=== PATIENT | female | born 1950 | race Caucasian/White ===

== ENCOUNTER 2017-01-07 21:38 | Emergency (ER) | payer MEDICARE, BC ==
[2017-01-07] MEDS ORDERED: HYDROcodone/APAP PREPAC 5/325 1 TAB TABLET PO ONE (22:43)
[2017-01-07] MEDS ORDERED: HYDROcodone/APAP 5/325 MG 1 TAB TABLET PO ONE (22:43)
--- NOTE | 2017-01-07 23:02 | ER NURSING DOCUMENTATION ---
Nurse's Notes [facility] Name:Merline Vogt Age:66 yrs Sex:Female :1950 Arrival Date:01/07/2017 Time:21:38 Bed2 Private MD: Diagnosis:Perforated Tympanic Membrane, Unspecified Ear;Barotrauma of Ear Presentation: 01/07 21:47 Presenting complaint: Patient states: Bilateral ear pain. Right ear with bright red mk4 bloody drainage. Transition of care: Home. 21:47 Method Of Arrival: Walk In [facility] 21:47 Acuity: JUSTUS 3 4 Triage Assessment: 21:50 General: Appears distressed, Behavior is cooperative. Pain: Complains of pain in right mk4 ear and left ear. EENT: Ear canal w/ bleeding noted from right ear. Neuro: No deficits noted. Cardiovascular: Chest pain is denied. Respiratory: No deficits noted. GI: No deficits noted. : No deficits noted. Derm: No deficits noted. Musculoskeletal: No deficits noted. Historical: - Allergies: SULFA (SULFONAMIDES); Peanuts; SULFA (SULFONAMIDES); Peanuts; - Home Meds: 1. Synthroid 25 mcg oral tab 1 tab once daily 2. omeprazole 40 mg oral cpDR 1 cap once daily 3. Coumadin 4 mg oral tab 1 tab once daily 4. Coumadin 2 mg oral tab 1 tab once daily 5. Toprol XL 100 mg oral Tb24 1 tab once daily 6. simvastatin 10 mg oral tab 1 tab once daily in the evening 7. Calcarb 600 With Vitamin D 600 mg(1,500mg) -400 unit oral tab twice a day 8. multivitamin oral tab daily 9. Synthroid 25 mcg oral tab 1 tab once daily 10. omeprazole 40 mg oral cpDR 1 cap once daily 11. Coumadin 4 mg oral tab 1 tab once daily 12. Coumadin 2 mg oral tab 1 tab once daily 13. Toprol XL 100 mg oral Tb24 1 tab once daily 14. simvastatin 10 mg oral tab 1 tab once daily in the evening 15. Calcarb 600 With Vitamin D 600 mg(1,500mg) -400 unit oral tab twice a day 16. multivitamin oral tab daily - PMHx: Pulmonary Embolism x 2; HYPERTENSION; HYPOTHYROIDISM; hypercholesteremia; - PSHx: LUMPECTOMY; L wrist surgical repair (October 2014); - Tetanus: < 10 years. - Ebola Screening: : No symptoms or risks identified at this time. . - Social history: Smoking status: Patient states was never smoker of tobacco. - Immunization history: Flu Vaccine < 1 year. Screenin:50 Infectious Disease Risk None. Abuse screen: Unable to Obtain. Nutritional screening: No mk4 deficits noted. Assessment: 21:50 See Triage Assessment done by same RN. mk4 Vital Signs: 21:46 BP 198 / 104 LA Sitting (auto/reg); Pulse 83 LA; Resp 20 S; Temp 98.0(O); Pulse Ox 94% em3 on R/A; Weight 75.75 kg (R); Height 5 ft. 2 in. (157.48 cm) (R); Pain 9/10; 21:46 Body Mass Index 30.54 (75.75 kg, 157.48 cm) em3 ED Course: 21:39 Patient arrived in ED. em3 21:41 Cale Espinal MD is Attending Physician. shannan 21:47 Irlanda Donaldson is Primary Nurse. mk4 21:47 Valuables Remains with patient Patient has correct armband on for positive em3 identification. Bed in low position. Call light in reach. 21:49 Triage completed. mk4 21:50 Labs drawn. mk4 22:30 Silvino Hendricks MD is Referral Physician. shannan Administered Medications: 22:37 Drug: HYDROcodone-acetaminophen 5 mg-325 mg 1 tabs; Route: PO; mk4 22:57 Follow up: Response: No adverse reaction; Pain is decreased mk4 22:37 Drug: HYDROcodone-acetaminophen (5mg/325 mg) 1-2 tabs 1 tabs; Route: PO; mk4 22:58 Follow up: Response: Pharmacy closed - take home med pack mk4 Outcome: 22:28 Discharge ordered by . shannan 23:00 Discharged to home mk4 23:00 Condition: good 23:00 Discharge Assessment: Patient awake, alert and oriented x 3. No cognitive and/or functional deficits noted. Patient verbalized understanding of disposition instructions. 23:00 Discharge instructions given to patient, Instructed on discharge instructions, follow up and referral plans. medication usage, Demonstrated understanding of instructions, medications, Prescriptions given X 1. 23:01 Patient left the ED. mk4 Signatures: Cale Espinal MD MD jm Meiklejohn, Eric em3 Mendoza, Irlanda mk4
--- NOTE | 2017-01-07 23:02 | ER PHYSICIAN DOCUMENTATION ---
Physician Documentation [facility] Name:Merline Vogt Age:66 yrs Sex:Female :1950 Arrival Date:01/07/2017 Time:21:38 Bed2 Private MD: Cale Solano Disposition: 01/07/17 22:28 Discharged to Home/Self Care. Impression: Perforated Tympanic Membrane, Unspecified Ear, Barotrauma of Ear. - Condition is Good. - Discharge Instructions: EARDRUM RUPTURE Traumatic - RUPTURED TM, Traumatic. - Prescriptions for Hydrocodone- Acetaminophen 5-325 mg Oral Tablet - take 1 tablet by ORAL route every 6 hours As needed; 20 tablet. - Medical Reconciliation form form. - Follow up: Silvino Hendricks MD; When: 1 - 2 days; Reason: Continuance of care. Follow up: Private Physician; When: CAll early monday morning for an appointment with any ENT doctor. I gave you Dr. Hendricks's name, but any will do. ; Reason: Continuance of care. - Problem is new. - Symptoms have improved. HPI: 01/08 07:26 This 66 yrs old Female presents to ER via Walk In with complaints of Ear jm Injury. 07:26 The patient presents with drainage. The complaints affect the right ear. Onset: The jm symptom(s)/episode began/occurred just prior to arrival. Associated signs and symptoms: Pertinent negatives: fever, lightheadedness. Severity of symptoms: in the emergency department the symptoms have improved mildly. The patient has not experienced similar symptoms in the past. The patient has not recently seen a physician. 66 yo F who just got back from a cruise. Everyone on the cruise was sik w a cold, including her . Pt got back yesterday and then started having bilateral ear pain today. She came into there ER as her R ear was getting so painful. From her car to there ER waiting room, her eardrum perforated and oozed out blood. PT is on warfarin due to PE's. Pt's pain now is much improved. . Historical: - Allergies: SULFA (SULFONAMIDES); Peanuts; SULFA (SULFONAMIDES); Peanuts; - Home Meds: 1. Synthroid 25 mcg oral tab 1 tab once daily 2. omeprazole 40 mg oral cpDR 1 cap once daily 3. Coumadin 4 mg oral tab 1 tab once daily 4. Coumadin 2 mg oral tab 1 tab once daily 5. Toprol XL 100 mg oral Tb24 1 tab once daily 6. simvastatin 10 mg oral tab 1 tab once daily in the evening 7. Calcarb 600 With Vitamin D 600 mg(1,500mg) -400 unit oral tab twice a day 8. multivitamin oral tab daily 9. Synthroid 25 mcg oral tab 1 tab once daily 10. omeprazole 40 mg oral cpDR 1 cap once daily 11. Coumadin 4 mg oral tab 1 tab once daily 12. Coumadin 2 mg oral tab 1 tab once daily 13. Toprol XL 100 mg oral Tb24 1 tab once daily 14. simvastatin 10 mg oral tab 1 tab once daily in the evening 15. Calcarb 600 With Vitamin D 600 mg(1,500mg) -400 unit oral tab twice a day 16. multivitamin oral tab daily - PMHx: Pulmonary Embolism x 2; HYPERTENSION; HYPOTHYROIDISM; hypercholesteremia; - PSHx: LUMPECTOMY; L wrist surgical repair (October 2014); - Tetanus: < 10 years. - Ebola Screening: : No symptoms or risks identified at this time. . - Social history: Smoking status: Patient states was never smoker of tobacco. - Immunization history: Flu Vaccine < 1 year. ROS: 01/07 22:00 Constitutional: Negative for fever. shannan ENT: Positive for drainage from ear(s), ear pain. ENT: Positive for sinus congestion, sore throat. Neck: Negative for stiffness, swelling. Respiratory: Positive for cough. Exam: 22:00 Constitutional: The patient appears alert, awake, comfortable. shannan 22:00 ENT: TM's: R TM w blood oozing out, so I could not visualize her TM. L TM w what appears to be blood behind it. , Mouth: is normal. 22:00 Cardiovascular: Rate: normal, Rhythm: regular. 22:00 Respiratory: Respirations: normal, Breath sounds: are normal. 22:00 Skin: Appearance: Color: pink, ecchymosis, not noted. Vital Signs: 21:46 BP 198 / 104 LA Sitting (auto/reg); Pulse 83 LA; Resp 20 S; Temp 98.0(O); Pulse Ox 94% em3 on R/A; Weight 75.75 kg (R); Height 5 ft. 2 in. (157.48 cm) (R); Pain 9; 21:46 Body Mass Index 30.54 (75.75 kg, 157.48 cm) em3 MDM: 21:40 Patient medically screened. 22:00 Differential diagnosis: ruptured TM. Data reviewed: vital signs, nurses notes, lab test result(s), and as a result, I will discharge patient. Counseling: I had a detailed discussion with the patient and/or guardian regarding: the historical points, exam findings, and any diagnostic results supporting the discharge/admit diagnosis, lab results, the need for outpatient follow up, an ENT specialist. ED course: Her pain is minimal now that her TM ruptured. HEr INR is elevated at 3.8 which is not helping, but probably not high enough for spontaneous bleeds. I have a feeling her hemotympanum is a combo of elevated INR, barotrauma, and a common cold. Pt urged to make an urgent appointment w ENT on Monday and RTED for JOHNSON, continued bleeding, fever, or for any other concerns. . 01/07 22:20 Order name: INR W/ CAPI DRAW EDMS Dispensed Medications: 22:37 Drug: HYDROcodone-acetaminophen 5 mg-325 mg 1 tabs; Route: PO; mk4 22:57 Follow up: Response: No adverse reaction; Pain is decreased mk4 22:37 Drug: HYDROcodone-acetaminophen (5mg/325 mg) 1-2 tabs 1 tabs; Route: PO; mk4 22:58 Follow up: Response: Pharmacy closed - take home med pack mk4 Signatures: Cale Espinal MD MD jm King, Melody mk4
== END 2017-01-07 23:02 | disposition home or self-care (01) ==
LOC: ER 21:38
DX: H72.91 Unspecified perforation of tympanic membrane, right ear (principal); T70.0XXA Otitic barotrauma, initial encounter; H92.03 Otalgia, bilateral; Z79.01 Long term (current) use of anticoagulants; I10 Essential (primary) hypertension; Z79.899 Other long term (current) drug therapy; Z86.711 Personal history of pulmonary embolism
CPT/HCPCS: 85610; 99283